=== PATIENT | male | born 1990 | race Two or more races ===

== ENCOUNTER 2021-06-07 22:06 | Inpatient (IN) | payer MEDICAID, OTHER ==
[~2021-06-07] VITALS: Ht 175.3 cm; Wt 69.4 kg
[2021-06-07] MEDS ORDERED: SODIUM CHLORIDE 0.9% 1,000 ML IVB ONE (22:30)
[2021-06-07 22:44] LABS: Basophils # (auto) 0 10 ^3/uL (0-0.2); Basophils % (auto) 0.6 % (0.0-2.0); Eosinophils # (auto) 0 10 ^3/uL (0-0.8); Eosinophils % (auto) 0.5 % (0.0-7.0); Hemoglobin 14.2 g/dL (13.5-17.5); Lymphocytes % (auto) 16.4 % (10.0-50.0); Mean Corpuscular Hemoglobin 30.9 pg (28.0-32.0); Mean Corpuscular Hgb Conc. 33.1 g/dL (32.0-36.0); Mean Corpuscular Volume 93.5 fL (80.0-100.0); Monocytes # (auto) 0.2 10 ^3/uL (0-1.3); Monocytes % (auto) 3.3 % (0.0-12.0); Neutrophils # (auto) 4.8 10 ^3/uL (1.6-8.6); Neutrophils % (auto) 79.2 % (37.0-80.0); Red Cell Distribution Width 12.9 % (11.8-14.3)
[2021-06-07 22:59] LABS: Albumin 3.9 g/dL (3.4-5.0); BUN/Creatinine Ratio 7.9; Calcium 8.1 mg/dL (8.5-10.1); Magnesium 2.9 mg/dL (1.6-2.6); Salicylate 2.1 mg/dL (2.8-20.0)
[2021-06-07 23:01] LABS: Bilirubin, Total 0.3 mg/dL (0.2-1.0); Total Protein 7.6 g/dL (6.4-8.2)
[2021-06-07 23:05] LABS: Acetaminophen < 2.0 ug/mL (10-30)
[2021-06-07 23:53] LABS: Urine Bacteria FEW /hpf (None Seen); Urine Blood 1+ /uL (Negative); Urine Hyaline Cast FEW /lpf (0 - 2); Urine WBC 8 /hpf (0 - 3)
[2021-06-07] MEDS ORDERED: NALOXONE HCL 1MG/ML 2ML SYRINGE ONE (23:54)
[2021-06-08] MEDS: PROPOFOL 100 ML IV SCH
[2021-06-08 00:10] LABS: Amphetamine Screen, Urine POSITIVE (NEGATIVE); Barbiturate Scree,Urine NEGATIVE (NEGATIVE); Benzodiazephine Screen, Urine NEGATIVE (NEGATIVE); Cannabinoid Screen, Urine POSITIVE (NEGATIVE); Cocaine Screen, Urine NEGATIVE (NEGATIVE); Opiate Scree,Urine NEGATIVE (NEGATIVE); Phencyclidine Screen, Urine NEGATIVE (NEGATIVE)
[2021-06-08] MEDS: NOREPINEPHRINE 8 MG/250ML KIT 250 ML IV SCH (00:30)
[2021-06-08] MEDS ORDERED: ETOMIDATE (2MG/ML) 20ML VIAL IV ONE (00:45)
[2021-06-08] MEDS ORDERED: ROCURONIUM 10MG/ML 10ML VIAL IV ONE (00:45)
[2021-06-08] MEDS ORDERED: NALOXONE HCL 1MG/ML 2ML SYRINGE IV ONE (00:45)
[2021-06-08 04:25] VITALS: BP 112/68
[2021-06-08] MEDS ORDERED: POTASSIUM CHL 20MEQ/100ML 100 ML IV ONE (04:30)
[2021-06-08 05:00] VITALS: BP 122/75
[2021-06-08] MEDS ORDERED: NITROGLYCERIN 0.4 MG SL TAB SL PRN (06:00)
[2021-06-08] MEDS ORDERED: MORPHINE SULFATE INJECTION 2 MG/ML SYRG IV PRN (06:00)
[2021-06-08] MEDS: SODIUM CHLORIDE 0.9% 1,000 ML IV SCH ×3 (06:44→21:00)
[2021-06-08 06:56] VITALS: BP 127/82
[2021-06-08 08:20] LABS: Basophils # (auto) 0 10 ^3/uL (0-0.2); Basophils % (auto) 0.2 % (0.0-2.0); Eosinophils # (auto) 0 10 ^3/uL (0-0.8); Hematocrit 43.1 % (41.0-53.0); Hemoglobin 14.2 g/dL (13.5-17.5); Lymphocytes # (auto) 1.1 10 ^3/uL (0.4-5.4); Lymphocytes % (auto) 7.4 % (10.0-50.0); Mean Corpuscular Hgb Conc. 32.9 g/dL (32.0-36.0); Mean Corpuscular Volume 94.3 fL (80.0-100.0); Monocytes # (auto) 0.8 10 ^3/uL (0-1.3); Monocytes % (auto) 5.2 % (0.0-12.0); Neutrophils # (auto) 13.6 10 ^3/uL (1.6-8.6); Neutrophils % (auto) 87.2 % (37.0-80.0); Red Blood Cells 4.58 10^6/uL (4.5-5.90); Red Cell Distribution Width 13.2 % (11.8-14.3); White Blood Cell 15.6 10^3/uL (4.4-10.8)
[2021-06-08 08:35] LABS: Potassium 4.1 mmol/L (3.5-5.1)
[2021-06-08 08:42] LABS: BUN/Creatinine Ratio 15.2; Bilirubin, Total 0.4 mg/dL (0.2-1.0); Calcium 8.1 mg/dL (8.5-10.1); Total Protein 7.6 g/dL (6.4-8.2)
[2021-06-08 09:17] VITALS: BP 131/85
[2021-06-08] MEDS ORDERED: NALOXONE HCL 0.4 MG/ML VIAL ONE (11:14)
[2021-06-08] MEDS ORDERED: NALOXONE HCL 0.4 MG/ML VIAL IV ONE (11:15)
[2021-06-08] MEDS ORDERED: PROCHLORPERAZINE EDISYLATE 5 MG/ML 2ML VIAL IV ONE (11:30)
[2021-06-08] MEDS ORDERED: ONDANSETRON HCL 4 MG/2 ML VIAL IV PRN (13:30)
[2021-06-09] MEDS: PROPOFOL 100 ML IV SCH (00:23)
[2021-06-09] MEDS: NOREPINEPHRINE 8 MG/250ML KIT 250 ML IV SCH (00:24)
[2021-06-09] MEDS: SODIUM CHLORIDE 0.9% 1,000 ML IV SCH ×2 (04:52→13:00)
[2021-06-09 06:59] LABS: Albumin 2.9 g/dL (3.4-5.0); Calcium 8.6 mg/dL (8.5-10.1)
[2021-06-09 07:03] LABS: BUN/Creatinine Ratio 13.5; Bilirubin, Total 0.7 mg/dL (0.2-1.0); Total Protein 6.6 g/dL (6.4-8.2)
[2021-06-09] MEDS ORDERED: PANTOPRAZOLE 40 MG TAB PO ONE (12:30)
[2021-06-09] MEDS: ENOXAPARIN SOD 40 MG/0.4 ML SYRINGE SC SCH (12:30)
[2021-06-09 21:00] VITALS: BP 142/80
[2021-06-09] MEDS ORDERED: METOPROLOL TARTRATE 1MG/1ML-5ML VIAL IV SCH (21:44)
[2021-06-09] MEDS ORDERED: LORazepam 2MG/ML-1ML VIAL IM ONE (21:45)
[2021-06-09] MEDS: METOPROLOL TARTRATE 1MG/1ML-5ML VIAL IV PRN (23:44)
[2021-06-10] MEDS: NOREPINEPHRINE 8 MG/250ML KIT 250 ML IV SCH (00:30)
[2021-06-10] MEDS: PROPOFOL 100 ML IV SCH (00:30)
[2021-06-10] MEDS: LORazepam 2MG/ML-1ML VIAL IV PRN (02:47)
[2021-06-10] MEDS: METOPROLOL TARTRATE 1MG/1ML-5ML VIAL IV PRN ×2 (03:30→11:36)
[2021-06-10] MEDS: SODIUM CHLORIDE 0.9% 1,000 ML IV SCH ×3 (04:14→13:00)
[2021-06-10 05:16] LABS: Hematocrit 41.2 % (41.0-53.0); Hemoglobin 14.4 g/dL (13.5-17.5); Mean Corpuscular Hemoglobin 31.9 pg (28.0-32.0); Mean Corpuscular Hgb Conc. 34.9 g/dL (32.0-36.0); Mean Corpuscular Volume 91.5 fL (80.0-100.0); Red Cell Distribution Width 12.7 % (11.8-14.3); White Blood Cell 6.4 10^3/uL (4.4-10.8)
[2021-06-10 05:25] LABS: BUN/Creatinine Ratio 13.7; Calcium 8.9 mg/dL (8.5-10.1); Magnesium 2.1 mg/dL (1.6-2.6); Potassium 4.1 mmol/L (3.5-5.1)
[2021-06-10 05:42] LABS: Basophils % (manual) 0 (0.0-2.0); Blast Cells 0; Eosinophils % (manual) 0 (0-7); Metamyelocytes % 0; Myelocytes % 0; Promyelocytes % 0; Reactive Lymphocytes 0
[2021-06-10 08:34] LABS: Band Neutrophils % (manual) 23; Lymphocytes % (manual) 16 (10.0-50.0); Monocytes % (manual) 4 (0-12)
[2021-06-10 09:00] VITALS: BP 119/63
[2021-06-10] MEDS: METOPROLOL TARTRATE 25 MG TAB PO SCH ×2 (11:36→22:07)
[2021-06-10] MEDS: PANTOPRAZOLE 40 MG TAB PO SCH (11:36)
[2021-06-10] MEDS: ENOXAPARIN SOD 40 MG/0.4 ML SYRINGE SC SCH (11:36)
[2021-06-10 12:10] LABS: Hepatitis B Surface Antibody Negative
[2021-06-10 12:39] LABS: Hepatitis A Total Antibody Negative
[2021-06-10 13:00] VITALS: BP 107/57
[2021-06-10 13:40] LABS: Hepatitis B Core Total AB Negative; Hepatitis B Surface Antigen Negative (Negative); Hepatitis C Antibody Negative (Negative)
[2021-06-10] MEDS: FOLIC ACID 1 MG, MULTIPLE VITAMIN 10 ML, MAGNESIUM SULF SDV 50% 8 MEQ, THIAMINE INJ 100... INJ SCH ×5 (15:30)
[2021-06-10 16:55] VITALS: BP 123/74
[2021-06-10] MEDS: HYDROcodone-ACET 5/325MG TAB PO PRN (19:57)
[2021-06-10 22:00] VITALS: BP 124/65
[2021-06-10] MEDS: GABAPENTIN 300 MG CAP PO SCH (22:08)
[2021-06-11] MEDS: LORazepam 2MG/ML-1ML VIAL IV PRN (02:03)
[2021-06-11] MEDS: HYDROcodone-ACET 5/325MG TAB PO PRN ×2 (02:04→08:27)
[2021-06-11 05:00] VITALS: BP 114/50
[2021-06-11] MEDS: METOPROLOL TARTRATE 1MG/1ML-5ML VIAL IV PRN (05:13)
[2021-06-11 05:34] LABS: Basophils # (auto) 0 10 ^3/uL (0-0.2); Basophils % (auto) 0.2 % (0.0-2.0); Eosinophils # (auto) 0 10 ^3/uL (0-0.8); Eosinophils % (auto) 0.2 % (0.0-7.0); Hematocrit 37.9 % (41.0-53.0); Hemoglobin 13.2 g/dL (13.5-17.5); Lymphocytes # (auto) 0.4 10 ^3/uL (0.4-5.4); Lymphocytes % (auto) 12.5 % (10.0-50.0); Mean Corpuscular Hemoglobin 31.7 pg (28.0-32.0); Mean Corpuscular Hgb Conc. 34.9 g/dL (32.0-36.0); Mean Corpuscular Volume 90.8 fL (80.0-100.0); Monocytes # (auto) 0.1 10 ^3/uL (0-1.3); Monocytes % (auto) 2.1 % (0.0-12.0); Neutrophils # (auto) 2.8 10 ^3/uL (1.6-8.6); Nucleated Red Blood Cells % 0.2 %; Red Blood Cells 4.17 10^6/uL (4.5-5.90); Red Cell Distribution Width 12.5 % (11.8-14.3); White Blood Cell 3.3 10^3/uL (4.4-10.8)
[2021-06-11 06:29] LABS: Potassium 3.4 mmol/L (3.5-5.1)
[2021-06-11] MEDS: GABAPENTIN 300 MG CAP PO SCH ×3 (06:40→22:34)
[2021-06-11 06:46] LABS: BUN/Creatinine Ratio 13.5; Bilirubin, Total 1.1 mg/dL (0.2-1.0); Calcium 9.1 mg/dL (8.5-10.1); Magnesium 2.4 mg/dL (1.6-2.6); Total Protein 7.2 g/dL (6.4-8.2)
[2021-06-11 08:09] LABS: Albumin 2.2 g/dL (3.4-5.0)
[2021-06-11] MEDS: METOPROLOL TARTRATE 25 MG TAB PO SCH ×2 (08:25→22:35)
[2021-06-11] MEDS: PANTOPRAZOLE 40 MG TAB PO SCH (08:27)
[2021-06-11 09:00] VITALS: BP 126/70
[2021-06-11] MEDS: ENOXAPARIN SOD 40 MG/0.4 ML SYRINGE SC SCH (10:00)
[2021-06-11] MEDS ORDERED: LORazepam 2MG/ML-1ML VIAL IV PRN (11:00)
[2021-06-11] MEDS ORDERED: IOHEXOL 300 MG/ML 100ML BOTTLE IJ ONE (11:20)
[2021-06-11] MEDS ORDERED: POTASSIUM EFFERVESENT TAB 25 MEQ PO ONE (12:30)
[2021-06-11 13:00] VITALS: BP 119/72
[2021-06-11] MEDS: FOLIC ACID 1 MG, MULTIPLE VITAMIN 10 ML, MAGNESIUM SULF SDV 50% 8 MEQ, THIAMINE INJ 100... INJ SCH ×5 (14:33)
[2021-06-11 17:00] VITALS: BP 123/65
[2021-06-11] MEDS: PIPERACILLIN-TAZOB 3.375GM 100 ML IV SCH ×2 (17:45→23:54)
[2021-06-11 22:00] VITALS: BP 106/63
[2021-06-12 05:00] VITALS: BP 97/64
[2021-06-12] MEDS: GABAPENTIN 300 MG CAP PO SCH ×3 (05:45→21:38)
[2021-06-12] MEDS: ACETAMINOPHEN 325 MG TAB PO PRN (05:45)
[2021-06-12] MEDS: PIPERACILLIN-TAZOB 3.375GM 100 ML IV SCH ×3 (05:45→19:18)
[2021-06-12] MEDS: ENOXAPARIN SOD 40 MG/0.4 ML SYRINGE SC SCH (08:30)
[2021-06-12] MEDS: PANTOPRAZOLE 40 MG TAB PO SCH (08:30)
[2021-06-12] MEDS: HYDROcodone-ACET 5/325MG TAB PO PRN ×2 (08:31→19:17)
[2021-06-12 09:00] VITALS: BP 105/61
[2021-06-12] MEDS: METOPROLOL TARTRATE 25 MG TAB PO SCH ×2 (10:00→21:38)
[2021-06-12 11:53] LABS: BUN/Creatinine Ratio 17.1; Calcium 9.1 mg/dL (8.5-10.1); Potassium 3.2 mmol/L (3.5-5.1)
[2021-06-12 13:00] VITALS: BP 108/56
[2021-06-12] MEDS: FOLIC ACID 1 MG, MULTIPLE VITAMIN 10 ML, MAGNESIUM SULF SDV 50% 8 MEQ, THIAMINE INJ 100... INJ SCH ×5 (13:38)
[2021-06-12 17:00] VITALS: BP 102/46
[2021-06-12] MEDS: TEMAZEPAM 15 MG CAP PO PRN (21:38)
[2021-06-12 22:00] VITALS: BP 107/75
[2021-06-13] MEDS ORDERED: MORPHINE SULFATE INJECTION 2 MG/ML SYRG IV ONE (00:45)
[2021-06-13] MEDS: PIPERACILLIN-TAZOB 3.375GM 100 ML IV SCH ×2 (00:59→06:04)
[2021-06-13] MEDS: HYDROcodone-ACET 5/325MG TAB PO PRN ×4 (02:45→22:31)
[2021-06-13] MEDS ORDERED: LORazepam 2MG/ML-1ML VIAL IV ONE (02:45)
[2021-06-13 05:00] VITALS: BP 109/41
[2021-06-13] MEDS: GABAPENTIN 300 MG CAP PO SCH ×3 (06:04→21:46)
[2021-06-13 06:11] LABS: Hematocrit 37.9 % (41.0-53.0); Hemoglobin 12.9 g/dL (13.5-17.5); Mean Corpuscular Hemoglobin 30.9 pg (28.0-32.0); Mean Corpuscular Hgb Conc. 34.1 g/dL (32.0-36.0); Mean Corpuscular Volume 90.6 fL (80.0-100.0); Red Blood Cells 4.19 10^6/uL (4.5-5.90); Red Cell Distribution Width 13.5 % (11.8-14.3); White Blood Cell 16.6 10^3/uL (4.4-10.8)
[2021-06-13 06:37] LABS: Basophils % (manual) 0 (0.0-2.0); Blast Cells 0; Eosinophils % (manual) 0 (0-7); Promyelocytes % 0; Reactive Lymphocytes 0
[2021-06-13 08:00] VITALS: BP 117/70
[2021-06-13 08:31] LABS: Band Neutrophils % (manual) 30; Lymphocytes % (manual) 6 (10.0-50.0); Metamyelocytes % 1; Monocytes % (manual) 5 (0-12); Myelocytes % 1
[2021-06-13] MEDS: ENOXAPARIN SOD 40 MG/0.4 ML SYRINGE SC SCH (09:16)
[2021-06-13] MEDS: levoFLOXacin 500MG 100 ML IV SCH (09:18)
[2021-06-13] MEDS: METOPROLOL TARTRATE 25 MG TAB PO SCH ×2 (09:19→21:46)
[2021-06-13] MEDS: PANTOPRAZOLE 40 MG TAB PO SCH (09:19)
[2021-06-13 12:00] VITALS: BP 105/57
[2021-06-13] MEDS: FOLIC ACID 1 MG, MULTIPLE VITAMIN 10 ML, MAGNESIUM SULF SDV 50% 8 MEQ, THIAMINE INJ 100... INJ SCH ×5 (13:28)
[2021-06-13 16:00] VITALS: BP 122/70
[2021-06-13 21:04] LABS: BUN/Creatinine Ratio 14.7; Calcium 8.4 mg/dL (8.5-10.1)
[2021-06-13 21:12] LABS: Potassium 2.8 mmol/L (3.5-5.1)
[2021-06-13 22:00] VITALS: BP 133/95
[2021-06-13] MEDS ORDERED: POTASSIUM CHL 20 Meq TABLET PO ONE (22:00)
[2021-06-13] MEDS: POTASSIUM CHL 20MEQ/100ML 100 ML IV SCH (22:24)
[2021-06-13] MEDS: TEMAZEPAM 15 MG CAP PO PRN (22:31)
[2021-06-14] MEDS: POTASSIUM CHL 20MEQ/100ML 100 ML IV SCH (00:50)
[2021-06-14] MEDS: ACETAMINOPHEN 325 MG TAB PO PRN (04:21)
[2021-06-14 05:00] VITALS: BP 118/64
[2021-06-14 05:59] LABS: Hematocrit 36.1 % (41.0-53.0); Hemoglobin 12.4 g/dL (13.5-17.5); Mean Corpuscular Hemoglobin 31.3 pg (28.0-32.0); Mean Corpuscular Hgb Conc. 34.3 g/dL (32.0-36.0); Mean Corpuscular Volume 91.2 fL (80.0-100.0); Red Blood Cells 3.95 10^6/uL (4.5-5.90); Red Cell Distribution Width 13.6 % (11.8-14.3); White Blood Cell 22.8 10^3/uL (4.4-10.8)
[2021-06-14 06:00] LABS: Albumin 1.6 g/dL (3.4-5.0); BUN/Creatinine Ratio 17.5; Calcium 8.6 mg/dL (8.5-10.1); Magnesium 2.2 mg/dL (1.6-2.6); Potassium 3.6 mmol/L (3.5-5.1)
[2021-06-14 06:03] LABS: Basophils % (manual) 0 (0.0-2.0); Bilirubin, Total 0.8 mg/dL (0.2-1.0); Blast Cells 0; Eosinophils % (manual) 0 (0-7); Metamyelocytes % 0; Promyelocytes % 0; Reactive Lymphocytes 0; Total Protein 6.4 g/dL (6.4-8.2)
[2021-06-14] MEDS: HYDROcodone-ACET 5/325MG TAB PO PRN ×3 (06:09→21:03)
[2021-06-14] MEDS: GABAPENTIN 300 MG CAP PO SCH ×2 (06:09→20:59)
[2021-06-14 08:13] LABS: Band Neutrophils % (manual) 14; Lymphocytes % (manual) 6 (10.0-50.0); Monocytes % (manual) 2 (0-12); Myelocytes % 1
[2021-06-14 09:00] VITALS: BP 111/65
[2021-06-14] MEDS: ENOXAPARIN SOD 40 MG/0.4 ML SYRINGE SC SCH (09:09)
[2021-06-14] MEDS: levoFLOXacin 500MG 100 ML IV SCH (09:09)
[2021-06-14] MEDS: PANTOPRAZOLE 40 MG TAB PO SCH (09:09)
[2021-06-14] MEDS: METOPROLOL TARTRATE 25 MG TAB PO SCH ×2 (09:09→21:07)
[2021-06-14 13:00] VITALS: BP 121/65
[2021-06-14 16:32] VITALS: BP 122/70
[2021-06-14 22:00] VITALS: BP 122/68
[2021-06-14] MEDS: TEMAZEPAM 15 MG CAP PO PRN (22:39)
[2021-06-15 05:00] VITALS: BP 126/67
[2021-06-15 05:37] LABS: Hemoglobin 11.7 g/dL (13.5-17.5); Mean Corpuscular Hemoglobin 31.3 pg (28.0-32.0); Mean Corpuscular Hgb Conc. 34.3 g/dL (32.0-36.0); Mean Corpuscular Volume 91.3 fL (80.0-100.0); Red Blood Cells 3.72 10^6/uL (4.5-5.90); Red Cell Distribution Width 13.8 % (11.8-14.3); White Blood Cell 19.9 10^3/uL (4.4-10.8)
[2021-06-15 05:46] LABS: Basophils % (manual) 0 (0.0-2.0); Blast Cells 0; Eosinophils % (manual) 0 (0-7); Promyelocytes % 0; Reactive Lymphocytes 0
[2021-06-15 05:53] LABS: Potassium 3.3 mmol/L (3.5-5.1)
[2021-06-15 05:58] LABS: BUN/Creatinine Ratio 20.9; Calcium 8.4 mg/dL (8.5-10.1); Magnesium 2.1 mg/dL (1.6-2.6)
[2021-06-15 06:25] LABS: Band Neutrophils % (manual) 3; Lymphocytes % (manual) 18 (10.0-50.0)
[2021-06-15 06:26] LABS: Metamyelocytes % 1; Monocytes % (manual) 1 (0-12); Myelocytes % 1
[2021-06-15 09:00] VITALS: BP 103/59
[2021-06-15] MEDS: ENOXAPARIN SOD 40 MG/0.4 ML SYRINGE SC SCH (09:04)
[2021-06-15] MEDS: PANTOPRAZOLE 40 MG TAB PO SCH (09:04)
[2021-06-15] MEDS: METOPROLOL TARTRATE 25 MG TAB PO SCH (09:04)
[2021-06-15] MEDS: levoFLOXacin 500MG 100 ML IV SCH (09:04)
[2021-06-15] MEDS: GABAPENTIN 300 MG CAP PO SCH (09:04)
[2021-06-15] MEDS ORDERED: POTASSIUM EFFERVESENT TAB 25 MEQ PO ONE (11:15)
[2021-06-15 11:40] VITALS: BP 103/59
== END 2021-06-15 12:05 | disposition home or self-care (01) | DRG 812 ==
LOC: ER 22:06 → EDBD 22:06 → TELE 06-08 05:51 → TELE-CENTR 06-09 20:02
PROVIDERS: ADMIT Nurse Practitioner Family; ATTEND Nurse Practitioner Family
PROC: 5A1935Z Respiratory Ventilation, Less than 24 Consecutive Hours (ICD-10-PCS; principal; 2021-06-08)
PROC: 0BH17EZ Insertion of Endotracheal Airway into Trachea, Via Natural or Artificial Opening (ICD-10-PCS; 2021-06-08)
PROC: 5A09357 Assistance with Respiratory Ventilation, Less than 24 Consecutive Hours, Continuous Positive Airway Pressure (ICD-10-PCS; 2021-06-08)
DX: T50.901A Poisoning by unspecified drugs, medicaments and biological substances, accidental (unintentional), initial encounter (principal); J96.01 Acute respiratory failure with hypoxia; K72.00 Acute and subacute hepatic failure without coma; J69.0 Pneumonitis due to inhalation of food and vomit; G92 Toxic encephalopathy; J13 Pneumonia due to Streptococcus pneumoniae; E87.2 Acidosis; J98.11 Atelectasis; R00.0 Tachycardia, unspecified; F14.90 Cocaine use, unspecified, uncomplicated; Z20.822 Contact with and (suspected) exposure to COVID-19; F10.20 Alcohol dependence, uncomplicated; F12.20 Cannabis dependence, uncomplicated; F15.20 Other stimulant dependence, uncomplicated; Z83.3 Family history of diabetes mellitus
CPT/HCPCS: 31500; 36415; 36600; 70450; 71045; 71260; 74177; 76705; 80048; 80053; 80307; 80320; 80329; 81001; 82805; 83735; 85007; 85025; 85027; 86704; 86706; 86708; 86803; 87070; 87077; 87186; 87205; 87340; 87426; 93306; 94002; 94660; 96361; 96365; 96366; 96372; 96375; 96376; 99291; G0378; J1956; J2543; J2704; J3480